=== PATIENT | male | born 1985 | race Caucasian/White ===

== ENCOUNTER 2023-03-21 08:54 | Outpatient (CLI) | payer BC, SELFPAY ==
--- NOTE | 2023-03-26 11:03 | WPDSLEEPSTUD ---
Sleep Study Date of Study: 03/21/23 Ordering Provider: Yuliana Albert MD Interpreting Physician: Yuliana Albert MD Sleep Study Type: BiPAP Titration Height: 1.91 m Weight: 213.188 kg Body Mass Index: 58.7 Neck Circumference (inches): 23 [place]: 20 Reason for Sleep Study Known central sleep apnea, severe hypoxemic respiratory failure * 02/08/2023, central sleep apnea, AHI 169.7, the entire study was spent below 88%. Baseline saturation 84%. Lowest desaturation 39%. 74% central and mixed apneas, 26% obstructive apneas. Sleep History Scot Bonner is a 37-year-old man with a history of COVID, 3rd episode in May of 2022. Since then, his respiratory function has been worsening with increased shortness of breath, weight gain, increased fatigue and inability to perform normal daily activities. He requires oxygen during the daytime. He has been told he has loud snoring. He has gained weight in the last year. He wakes up during the night and he has excessive daytime sleepiness. He rarely awakens from sleep feeling short of breath. He does not awaken at night with heartburn, belching or coughing. He constantly snores loudly enough that others complain. Occasionally has trouble sleeping with a cold. He rarely gets wakes up gasping for breath at night. He frequently has breathing problems at night observed by others. He constantly sweats excessively at night. He occasionally notices his heart pounding or beating irregularly at night. He is always falling asleep during the day, always falling asleep involuntarily and frequently falling asleep while driving. He he does not have loss of muscle tone with strong emotion. He frequently has daytime difficulties due to his excessive sleepiness. He rarely feels paralyzed on waking or falling asleep, and rarely has vivid dreamlike scenes on waking or falling asleep. He does not feel afraid to go to sleep. He rarely has nightmares. He occasionally remembers his dreams. He does not have racing thoughts. He rarely feels sad, depressed, or anxious. He rarely has muscular tension. He frequently notices parts of his body jerking. He occasionally kicks during the night. He rarely has crawling and aching feelings in his legs, rarely has any kind of leg pain at night. He rarely has morning jaw pain. He does not grind his teeth during sleep. He frequently is bothered by pain during the day. He rarely is awakened by pain at night. He frequently wakes up feeling stiff in the morning. He occasionally wakes up with sore achy muscles. He frequently wakes up with pain in the neck and spine. He has fatigue and sexual problems. Normal bedtime is between midnight and 1:00 a.m.. He can go to sleep instantly. He wakes 2 or 3 times at night to go to the bathroom. Sometimes he watch videos. It may take him 5-10 minutes to return to sleep. He wakes the morning between 5 and 6:00 a.m.. On the weekends, bedtime is later, between 2 and 3:00 a.m., waking between 6 and 7:00 a.m.. He takes naps in the afternoon or evening. A short nap lasting 10 or 15 minutes is not refreshing. He is usually drowsy for 3 hours after waking. He feels better in the evening compared to other times of day. Habits: Former cigarette smoker, caffeine 4- 5 servings a day, no alcohol or recreational substances. [facility] Past Medical History Medical History Central sleep apnea Hidradenitis suppurativa History of tobacco use Hypertension Iron deficiency anemia Family History Family History Father Diabetes mellitus Heart disease Mother Cerebrovascular accident Grandparent Alcoholism Grandparent Alcoholism Social History Social History Smoking status: Former smoker Alcohol intake: never Substance use: never Substance use type: does not use Leonor
[2023-03-26 17:12] VITALS: BMI 58.7
== END 2023-03-22 07:16 | disposition home or self-care (01) ==
LOC: ANHCSM 08:56
PROVIDERS: Visit Provider Internal Medicine Critical Care Medicine
DX: G47.33 Obstructive sleep apnea (adult) (pediatric) (principal)
CPT/HCPCS: 95811